=== PATIENT | female | born 1980 | race Caucasian/White ===

== ENCOUNTER → 2017-09-04 13:57 | Outpatient (CLI) | payer OTHER, SELFPAY ==
--- NOTE | 2017-09-04 14:04 | US_ITS ---
STUDY: RENAL ULTRASOUND - COMPLETE REASON FOR EXAM: Female, 37 years old. Flank pain, hematuria TECHNIQUE: Transverse and longitudinal imaging of the kidneys and bladder was obtained using real-time ultrasound. COMPARISON: CT abdomen and pelvis dated July 06, 2017 FINDINGS: RIGHT KIDNEY: The right kidney is normal in location. The right kidney measures 10.7 x 3.8 x 5.1 cm. The renal cortex is normal in appearance. The renal cortex measures 1.2 cm. There is no demonstrated renal mass. There is no dilatation of the collecting system. LEFT KIDNEY: The left kidney is normal in location. The left kidney measures 10.1 x 4.3 x 4.0 cm. The renal cortex is normal in appearance. The renal cortex measures 1.1 cm. There is no demonstrated renal mass. There is an extra-renal pelvis of the left kidney. There is no distention of the renal calyces. BLADDER: The bladder shows a normal wall thickness. There is no demonstrated mass in the bladder. The right ureteral jet was visualized. The left ureteral jet was visualized. US/Kidney and Bladder IMPRESSION: There is a prominent extrarenal pelvis on the left side, or there is mild left hydronephrosis. The kidneys are normal in size and echogenicity. No significant abnormalities are seen in the bladder. Electronically Signed: Malia Mohr MD at 20:46 EST Tel Direct: [phone], Service support ,
--- NOTE | 2017-09-04 14:04 | US_ITS ---
STUDY: ULTRASOUND OF THE FEMALE PELVIS REASON FOR EXAM: Female, 37 years old. Left pelvic pain LMP: September 03, 2017 TECHNIQUE: Transverse and longitudinal imaging of the pelvis was obtained transvaginally using real-time ultrasound. COMPARISON: CT abdomen and pelvis dated July 06, 2017 FINDINGS: The uterus is retroflexed and is in a midline position. The uterus measures 7.9 x 4.9 x 4.7 cm. Normal uterine cervix. The endometrium measures 4.5 mm in thickness, and is hyperechoic. There is no demonstrated endometrial mass. There is no demonstrated myometrial mass. I.U.D. - The patient does not have an I.U.D. The right ovary is visualized. The right ovary measures 2.9 x 2.1 x 2.1 cm. There are follicles in the right ovary without a dominant cyst. There is no visualized right adnexal mass or complex lesion. There is normal arterial and normal venous vascularity. The left ovary is visualized. The left ovary measures 2.8 x 1.4 x 1.3 cm. There is a dominant follicle in the left ovary measuring 1 cm in size. There is no visualized left adnexal mass or complex lesion. There is normal arterial and normal venous vascularity. There is no fluid in the cul-de-sac. The bladder was not adequately visualized on the pelvic ultrasound. US/Transvaginal Non- IMPRESSION: There are no significant abnormalities on the pelvic ultrasound. Electronically Signed: Malia Mohr MD at 21:24 EST Tel Direct: [phone], Service support ,
--- NOTE | 2017-09-04 14:04 | US_ITS ---
STUDY: ULTRASOUND OF THE FEMALE PELVIS REASON FOR EXAM: Female, 37 years old. Left pelvic pain LMP: September 03, 2017 TECHNIQUE: Transverse and longitudinal imaging of the pelvis was obtained transvaginally using real-time ultrasound. COMPARISON: CT abdomen and pelvis dated July 06, 2017 FINDINGS: The uterus is retroflexed and is in a midline position. The uterus measures 7.9 x 4.9 x 4.7 cm. Normal uterine cervix. The endometrium measures 4.5 mm in thickness, and is hyperechoic. There is no demonstrated endometrial mass. There is no demonstrated myometrial mass. I.U.D. - The patient does not have an I.U.D. The right ovary is visualized. The right ovary measures 2.9 x 2.1 x 2.1 cm. There are follicles in the right ovary without a dominant cyst. There is no visualized right adnexal mass or complex lesion. There is normal arterial and normal venous vascularity. The left ovary is visualized. The left ovary measures 2.8 x 1.4 x 1.3 cm. There is a dominant follicle in the left ovary measuring 1 cm in size. There is no visualized left adnexal mass or complex lesion. There is normal arterial and normal venous vascularity. There is no fluid in the cul-de-sac. The bladder was not adequately visualized on the pelvic ultrasound. US/Pelvic (Non ) IMPRESSION: There are no significant abnormalities on the pelvic ultrasound. Electronically Signed: Malia Mohr MD at 21:24 EST Tel Direct: [phone], Service support ,
== END ==
PROVIDERS: Family Provider Nurse Practitioner Family
DX: R31.9 Hematuria, unspecified (principal); R10.9 Unspecified abdominal pain
CPT/HCPCS: 76770; 76830; 76856; 93976

== ENCOUNTER → 2017-10-06 10:42 | Outpatient (CLI) | payer OTHER, SELFPAY ==
[2017-10-06 14:15] LABS: hCG Titer Quant., Serum 823 mIU/mL (<9 non-preg)
[2017-10-06 14:22] LABS: Thyroid Stim Hormone (TSH) 2.66 uIU/mL (0.358-3.74)
[2017-10-07 09:48] LABS: Progesterone Level 27.76 ng/mL (See Comment)
== END ==
PROVIDERS: Visit Provider Nurse Practitioner Women's Health
DX: Z34.90 Encounter for supervision of normal pregnancy, unspecified, unspecified trimester (principal); N92.6 Irregular menstruation, unspecified
CPT/HCPCS: 36415; 84144; 84443; 84702

== ENCOUNTER → 2017-10-07 15:00 | Outpatient (CLI) | payer OTHER, SELFPAY | PROVIDERS: Family Provider Nurse Practitioner Family; PCP Nurse Practitioner Family; Visit Provider Nurse Practitioner Women's Health | DX: N89.8 Other specified noninflammatory disorders of vagina (principal) | CPT/HCPCS: 87070; 87205 ==

== ENCOUNTER → 2017-10-08 10:44 | Outpatient (CLI) | payer OTHER, SELFPAY ==
[2017-10-08 11:46] LABS: hCG Titer Quant., Serum 1085 mIU/mL (<9 non-preg)
== END ==
PROVIDERS: Family Provider Nurse Practitioner Family; PCP Nurse Practitioner Family; Visit Provider Nurse Practitioner Women's Health
DX: Z34.90 Encounter for supervision of normal pregnancy, unspecified, unspecified trimester (principal)
CPT/HCPCS: 36415; 84702

== ENCOUNTER → 2017-10-10 11:12 | Outpatient (CLI) | payer OTHER, SELFPAY ==
[2017-10-10 12:17] LABS: hCG Titer Quant., Serum 1582 mIU/mL (<9 non-preg)
== END ==
PROVIDERS: Family Provider Nurse Practitioner Family; PCP Nurse Practitioner Family; Visit Provider Nurse Practitioner Women's Health
DX: Z34.90 Encounter for supervision of normal pregnancy, unspecified, unspecified trimester (principal)
CPT/HCPCS: 36415; 84702

== ENCOUNTER → 2017-10-12 13:52 | Outpatient (CLI) | payer OTHER, SELFPAY ==
--- NOTE | 2017-10-12 13:55 | US_ITS ---
STUDY: FIRST TRIMESTER OBSTETRICAL ULTRASOUND REASON FOR EXAM: Female, 37 years old. Pelvic pain. Early . LMP: 09/03/2017 TECHNIQUE: 09/04/2017 PRIOR ULTRASOUND: None. FINDINGS: There is visualization of a single gestational sac in a normal intrauterine position. The mean sac diameter (MSD) measures 4.4 mm, indicating an estimated gestational age (EGA) of 5 weeks, 0 days. The gestational sac shape is within normal limits. There is a visualized yolk sac. The yolk sac measures 2.4 mm. The placenta is non-visualized. There is no demonstrated embryo ( pole). The estimated gestation age (EGA) by LMP is 5 weeks, 4 days. The estimated date of delivery (ADILSON) by LMP is 06/10/2018. The estimated gestation age (EGA) by US is 5 weeks, 0 days. The estimated date of delivery (ADILSON) by US is 06/14/2018. The uterus measures 8.9 x 6.0 x 5.0 cm. There is no demonstrated uterine fibroid. The cervix is closed. The right ovary measures 3.1 x 2.4 x 2.4 cm. Probable right corpus luteum cyst. There is no visualized right adnexal mass or complex lesion. The left ovary measures 3.0 x 1.6 x 1.7 cm. There is no left ovarian cyst. There is no visualized left adnexal mass or complex lesion. There is minimal fluid in the cul de sac. US/Transvaginal w/Preg US IMPRESSION: Very early intrauterine gestation. Viability not established. Recommend short interval follow-up. Electronically Signed: Micha Warren MD at 16:00 EST , Service support ,
== END ==
PROVIDERS: Family Provider Nurse Practitioner Family; PCP Nurse Practitioner Family; Visit Provider Nurse Practitioner Women's Health
DX: R10.2 Pelvic and perineal pain (principal)
CPT/HCPCS: 76817

== ENCOUNTER → 2017-10-21 10:13 | Outpatient (CLI) | payer OTHER, SELFPAY ==
--- NOTE | 2017-10-21 10:14 | US_ITS ---
STUDY: FIRST TRIMESTER OBSTETRICAL ULTRASOUND REASON FOR EXAM: Female, 37 years old. Threatened . LMP: September 03, 2017. TECHNIQUE: Transabdominal and Transvaginal PRIOR ULTRASOUND: Comparison is made with prior examination dated October 12, 2017 FINDINGS: There is visualization of a single gestational sac in a normal intrauterine position. The mean sac diameter (MSD) measures 1.09 cm, indicating an estimated gestational age (EGA) of 5 weeks, 6 days. The gestational sac shape is within normal limits. There is a visualized yolk sac. The yolk sac measures 3.6 mm. The placenta is non-visualized. There is visualization of a live embryo. The crown-rump length (CRL) measures 5.4 mm, indicating an estimated gestational age (EGA) of 6 weeks, 3 days. There is demonstrated cardiac activity with a heart rate of 119 bpm. The estimated gestation age (EGA) by LMP is 6 weeks, 6 days. The estimated date of delivery (ADILSON) by LMP is June 10, 2018. The estimated gestation age (EGA) by US is 6 weeks, 1 days. The estimated date of delivery (ADILSON) by US is June 15, 2018. The uterus measures 10.7 cm x 7.8 cm x 6.8 cm. There is no demonstrated uterine fibroid. The cervix is closed. The right ovary measures 3.7 cm x 2.1 cm x 2.2 cm.. There is no right ovarian cyst. There is no visualized right adnexal mass or complex lesion. The left ovary measures 2.2 cm x 2.4 cm x 2.1 cm. There is no left ovarian cyst. There is no visualized left adnexal mass or complex lesion. There is minimal fluid in the cul de sac. US/Init OB < 14Wks US IMPRESSION: Single live gestation with mean gestational age of 6 weeks and 1 day. Electronically Signed: Giancarlo Block MD at 13:16 EDT Tel [phone], Service support ,
== END ==
PROVIDERS: Family Provider Nurse Practitioner Family; PCP Nurse Practitioner Family; Visit Provider Obstetrics & Gynecology
DX: O20.0 Threatened abortion (principal)
CPT/HCPCS: 76801

== ENCOUNTER → 2017-10-27 09:58 | Outpatient (CLI) | payer OTHER, SELFPAY ==
[2017-10-27 13:49] LABS: Absolute Lymphocyte Count 2.06 X10^3/ul (0.83-4.51); Absolute Neutrophil Count 3.5 X10^3/uL (2.0-7.7); Basophil# 0.01 X10^3/uL; Basophil% 0.2 % (0-1); Eosinophil# 0.04 X10^3/uL; Eosinophils% 0.7 % (0-5); Hematocrit 36.9 % (37-47); Hemoglobin 12.3 g/dl (12.0-15.0); Lymphocyte # 2.06 X10^3/ul (4.0); Lymphocyte % 34.4 % (19-41); Mean Corp Hgb Conc 33.3 g/gl (32-36); Mean Corpuscular Hgb 30.8 pg (27.0-32.0); Mean Corpuscular Volume 92.3 fL (81-99); Mean Platelet Vol. 11.4 fl (6.2-12.0); Monocyte# 0.42 X10^3/uL; Neutrophil # 3.45 X10^3/uL (2.7-7.7); Neutrophil % 57.7 % (47-70); Platelet Count 240 K/mm3 (150-450); RBC Distribution Width CV 12.4 % (11.6-14.6); RBC Distribution Width SD 40.9 fl (35.1-43.9)
[2017-10-27 13:52] LABS: POSITIVE COUNT NO; POSITIVE DIFFERENTIAL NO; POSITIVE MORPHOLOGY NO
[2017-10-28 09:49] LABS: HIV - WCH Non-Reactive (Nonreactive); Rubella IgG 51.8 IU/mL
[2017-10-28 11:19] LABS: HEPATITIS B SURFACE AG Negative (Negative)
[2017-10-30 03:10] LABS: Rapid Plasmin Reagin (RPR) NONREACTIVE (NONREACTIVE)
== END ==
PROVIDERS: Family Provider Nurse Practitioner Family; PCP Nurse Practitioner Family; Visit Provider Obstetrics & Gynecology
DX: O09.511 Supervision of elderly primigravida, first trimester (principal); Z3A.00 Weeks of gestation of pregnancy not specified
CPT/HCPCS: 85025; 86592; 86703; 86762; 86850; 86900; 87340

== ENCOUNTER → 2017-10-27 22:04 | Outpatient (CLI) | payer OTHER, SELFPAY ==
[2017-10-28 01:27] LABS: Chlamydia Trachomatis by PCR Negative (Negative); Neisserai gonorrhoeae by PCR Negative (Negative); Probe Check PASS; Sample Adequacy Control PASS; Specimen Processing Control PASS
[2017-11-04 11:46] LABS: HPV APTIMA, High Risk Negative (Negative)
== END ==
PROVIDERS: Visit Provider Obstetrics & Gynecology
DX: O09.511 Supervision of elderly primigravida, first trimester (principal); Z12.4 Encounter for screening for malignant neoplasm of cervix; Z3A.00 Weeks of gestation of pregnancy not specified
CPT/HCPCS: 87086; 87088; 87491; 87591; 88175; G0145

== ENCOUNTER → 2017-11-24 09:45 | Outpatient (CLI) | payer OTHER, SELFPAY | PROVIDERS: Nurse Practitioner Women's Health; Visit Provider Obstetrics & Gynecology | DX: O09.529 Supervision of elderly multigravida, unspecified trimester (principal); Z3A.00 Weeks of gestation of pregnancy not specified ==

== ENCOUNTER → 2017-11-24 18:45 | Outpatient (CLI) | payer OTHER, SELFPAY ==
[2017-11-28 13:20] LABS: HPV APTIMA, High Risk Negative (Negative)
== END ==
PROVIDERS: Visit Provider Nurse Practitioner Women's Health
DX: Z12.4 Encounter for screening for malignant neoplasm of cervix (principal)
CPT/HCPCS: 88175; G0145

== ENCOUNTER → 2018-01-22 12:21 | Outpatient (CLI) | payer OTHER, SELFPAY ==
--- NOTE | 2018-01-22 12:23 | US_ITS ---
STUDY: SECOND AND THIRD TRIMESTER OBSTETRICAL ULTRASOUND REASON FOR EXAM: Female, 37 years old. Anatomy scan. LMP: 09/03/2017 TECHNIQUE: Transabdominal PRIOR ULTRASOUND: 10/21/2017. FINDINGS: There is a single intrauterine fetus. The fetus is in a breech presentation. There is demonstrated cardiac activity with a heart rate of 163 bpm. There is a normal amniotic fluid volume. The largest amniotic fluid pocket measures 6.8 cm. The placenta is anterior in location and is not low lying. There are Grade 0 placental changes. The cervix measures 4.0 cm in length. The adnexal regions are not visualized. BIOMETRY: BPD: 4.5: 19 weeks, 5 days HC: 17.6: 20 weeks, 1 days AC: 14.9: 20 weeks, 1 days FL: 3.3: 20 weeks, 3 days CI: FL/BPD: FL/HC: FL/AC: HC/AC: age by current US: 20 weeks, 1 days. ADILSON by current US: 06/10/2018. Estimated weight: 341 grams, +/- 50 grams, 51 %. age by prior US: 19 weeks, 3 days. ADILSON by prior US: 06/15/2018. Age by LMP: 20 weeks, 1 days. ADILSON by LMP: 06/10/2018. ANATOMY: Gender: Female Cranium: Normal lateral ventricles. Normal choroid plexus. Normal cerebellum. Normal cisterna magna. Normal face, nose and lips. Chest: Normal 4-chamber heart. Abdomen/Pelvis: Normal diaphragm. Normal stomach. Normal abdominal wall. Normal cord insertion. Normal 3 vessel cord. Normal kidneys. Normal bladder. Spine: Normal cervical spine. Normal thoracic spine. Normal lumbar spine. Normal sacrum. Extremities: Normal bilateral upper extremities. Normal bilateral lower extremities. US/OB Anatomy Scan IMPRESSION: Single live fetus in a breech presentation. No demonstrated anatomic abnormality. Placenta is grade 0 and is not low-lying. Cervix is closed. age by current US: 20 weeks, 1 days. ADILSON by current US: 06/10/2018. Estimated weight: 341 grams, +/- 50 grams, 51 %. Electronically Signed: Micha Warren MD at 15:23 EDT , Service support ,
== END ==
PROVIDERS: Visit Provider Obstetrics & Gynecology
DX: O09.511 Supervision of elderly primigravida, first trimester (principal); Z3A.20 20 weeks gestation of pregnancy
CPT/HCPCS: 76805

== ENCOUNTER → 2018-03-19 10:47 | Outpatient (CLI) | payer OTHER, SELFPAY ==
[2018-03-19 13:16] LABS: Absolute Lymphocyte Count 1.77 X10^3/ul (0.83-4.51); Absolute Neutrophil Count 4.6 X10^3/uL (2.0-7.7); Basophil# 0.01 X10^3/uL; Basophil% 0.1 % (0-1); Eosinophil# 0.05 X10^3/uL; Eosinophils% 0.7 % (0-5); Hematocrit 35.2 % (37-47); Hemoglobin 11.7 g/dl (12.0-15.0); Lymphocyte # 1.77 X10^3/ul (4.0); Lymphocyte % 25.2 % (19-41); Mean Corp Hgb Conc 33.2 g/gl (32-36); Mean Corpuscular Hgb 31.5 pg (27.0-32.0); Mean Corpuscular Volume 94.9 fL (81-99); Mean Platelet Vol. 11.1 fl (6.2-12.0); Monocyte# 0.52 X10^3/uL; Monocyte% 7.4 % (0-10); Neutrophil # 4.64 X10^3/uL (2.7-7.7); Neutrophil % 66.2 % (47-70); Platelet Count 218 K/mm3 (150-450); RBC Distribution Width CV 13.1 % (11.6-14.6); RBC Distribution Width SD 43.9 fl (35.1-43.9); Red Blood Count 3.71 M/mm3 (4.2-5.4)
[2018-03-19 13:19] LABS: POSITIVE COUNT NO; POSITIVE DIFFERENTIAL NO; POSITIVE MORPHOLOGY NO
[2018-03-19 13:27] LABS: Glucose Challenge Gest 1H 50g 61 mg/dL (70-140)
== END ==
PROVIDERS: Visit Provider Obstetrics & Gynecology
DX: O09.529 Supervision of elderly multigravida, unspecified trimester (principal); Z3A.00 Weeks of gestation of pregnancy not specified
CPT/HCPCS: 36415; 82950; 85025

== ENCOUNTER 2018-05-14 12:20 | Inpatient (IN) | payer OTHER, SELFPAY ==
[2018-05-14] MEDS: Lactated Ringers 1,000 ML 50 ML IV (13:10)
[2018-05-14 13:27] LABS: Hematocrit 36.3 % (37-47); Hemoglobin 12.2 g/dl (12.0-15.0); Mean Corp Hgb Conc 33.6 g/gl (32-36); Mean Corpuscular Hgb 31.3 pg (27.0-32.0); Mean Corpuscular Volume 93.1 fL (81-99); Mean Platelet Vol. 10.2 fl (6.2-12.0); Platelet Count 205 K/mm3 (150-450); RBC Distribution Width CV 13.3 % (11.6-14.6); White Blood Count 8.2 K/mm3 (4.4-11.0)
[2018-05-14 13:28] LABS: Scan Indicated on CBC? Y/N NO
[2018-05-14] MEDS: miSOPROStol 25 MCG TABLET VAGINAL (13:30)
[2018-05-14 13:36] VITALS: BMI 24.2
[2018-05-14] MEDS: Betamethasone/Betamethasone 30 MG/5 ML Vial 12 MG IM (14:10)
[2018-05-14] MEDS: 0.9% Saline Lock 10 ML Syringe IV (14:20)
[2018-05-14] MEDS: Terbutaline 1 MG/ML Vial 0.25 MG SC (17:33)
--- NOTE | 2018-05-14 20:21 | PCM.HP.OB ---
- Problem List (1) Oligohydramnios in third trimester Status: Acute (2) Uterine size-date discrepancy in third trimester Status: Acute Comment: us ordered (3) Status: Acute Qualifiers: Comment: NIPT screening negative. carrier and NTD screening declined. anatomy scan normal (4) High-risk , multigravida of advanced maternal age, antepartum Status: Acute Comment: PRR ADILSON 06/10/18 Girl. Herlinda Matias Jorge A (5) Pap smear abnormality of cervix with ASCUS favoring benign Status: Acute Comment: repeat 08/2018 History Date of Admission: 05/14/18 Final ADILSON: 06/10/18 Gestational age: 36 Weeks and 1 Days History of this : This is a 38 year-old, at 36 weeks gestational age presents for IOL secondary to oligohydramnios. she has had a complicated by AMA but otherwise no issues. denies vb lof admits good fm Surgical History: Surgical History (Last Reviewed 05/14/18 @ 10:16 by Elsa Fay) H/O LEEP Z98.890 2005, negative since gallstone removal Allergies No Known Allergies Allergy (Verified 05/14/18 10:16) Home Medications: Home Medications vitamin,calcium,nfffsbxr-nprb-easqw acid tablet 1 tab PO QDAY 10/13/17 ondansetron HCl 4 mg tablet 4 mg PO Q6H PRN #60 tab 11/24/17 Smoking Status: Never smoker Alcohol: None Number of Fetus(es): 1 Heart Tracin mod sammy reactive no decels cat I tracing TOCO Analysis: no regular History Past Pregnancies: Past Pregnancies Delivery Date Name GA/Weeks Outcome Route Weight Infant Gender Labor Length Anesthesia Delivery Location Provider FOB Labs: Mom's Labs & Results 05/14/18 05/14/18 13:10 13:10 WBC 8.2 RBC 3.90 L Hgb 12.2 Hct 36.3 L MCV 93.1 MCH 31.3 MCHC 33.6 RDW 13.3 RDW Differential 45.0 H Plt Count 205 MPV 10.2 Blood Type O POSITIVE Antibody Screen NEGATIVE Course Did the patient receive Yes care? Labs Blood Type: O RH: POSITIVE RPR/VDRL/Syphilis Nonreactive Rubella status Immune HbSAg Negative Date Done: 10/27/17 Chlamydia Negative Gonorrhea Negative HIV/AIDS Non-Reactive Group B Strep: Not Done Current Obstetrical History Gestational Diabetes No Incompetent Cervix No Infertility No IUGR No Macrosomia No Hypertension/Pre-eclampsia No Placenta Previa/Abruption No PTL/PROM No Uterine anomaly No Oligohydramnios Yes Polyhydramnios No Multiple gestation No Past Medical History Asthma No Diabetes No Hypertension No Heart disease No Mitral valve prolapse No Neurologic/Seizure disorder/ No Migraines Kidney disease No Liver disease No Varicosities No Clotting disorders/Hx of DVT No Thyroid Dysfunction No Other medical diseases No Psychiatric disorders No Major trauma No Abnormal PAP smear Yes: not recently Sleep apnea No Mammogram in the last 2 years No Social History Marital Status: Alleged father Jorge A Smart Hx Smoking No Smoking Status Never smoker Expected Delivery Method: Spontaneous Vaginal Review of Systems Constitutional: Denies: Fever, Malaise Eyes: Denies: Blurred vision, Vision Change HEENT: Denies: Head Aches, Visual Changes Cardiovascular: Denies: Chest Pain, Palpitations Respiratory: Denies: Cough, Shortness of Breath, Wheezing Gastrointestinal: Denies: Abdominal Pain, Diarrhea, Nausea, Vomiting Genitourinary: Denies: Dysuria, Hematuria Musculoskeletal: Denies: Joint Pain, Muscle pain Skin: Denies: Lesions, Rash Neurological: Denies: Blurred vision, Focal weakness, Headaches Psychiatric: Denies: Anxiety, Depression Endocrine: Denies: Heat/ Cold Intolerance Hematologic/ Lymphatic: Denies: Easy Bruising, Easy Bleeding Physical Exam General: Alert, Cooperative, No apparent distress HEENT: Atraumatic, Normocephalic. Negative for: Thyromegaly, Lymphadenopathy Cardiovascular: Regular rate Lungs: Normal air movement Abdomen: Soft, Non Tender, Gravid Neurological: Deep Tendon Reflexes 2+/4 and Symmetrical, Neuro grossly intact. 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 Negative for: Vulvar lesions Estimated gestational size: Appropriate for gestational size Presentation: Cephalic Assessment/Plan All Active Problems (Last Reviewed 05/14/18 @ 10:16 by Elsa Fay) Oligohydramnios in third trimester (Acute) Uterine size-date discrepancy in third trimester (Acute) (Acute) High-risk , multigravida of advanced maternal age, antepartum (Acute) Pap smear abnormality of cervix with ASCUS favoring benign (Acute) Threatened (Resolved) This is a 38 year-old, at 36 weeks gestational age presents IOL oligo Patient presents IOL oligo- plan cytotec then pitocin IOL Pain management: plans epidural GBS positive plan IV PCN Management of any complications: oligo I have reviewed the PFSH and made any clinically relevant updates.
[2018-05-14] MEDS: Oxytocin 30 units/NS 500 ml 30 UNITS/500 ML IV.SOLN 167 UNITS IV (20:30)
[2018-05-14] MEDS: Amnioinfusion- 0.9% NS 1,000 ML IV.SOLN. INTRA-UTER (20:40)
[2018-05-14] MEDS: fentaNYL-bupivacaine (epidural) 100 ML BAG EPIDURAL ×2 (21:04→22:48)
[2018-05-14] MEDS: Lactated Ringers 1,000 ML 150 ML IV (22:49)
[2018-05-15] MEDS: Oxytocin 30 units/NS 500 ml 30 UNITS/500 ML IV.SOLN 334 UNITS IV (02:54)
--- NOTE | 2018-05-15 03:22 | PCM.OB.VAG ---
- Problem List (1) Oligohydramnios in third trimester Status: Acute (2) Uterine size-date discrepancy in third trimester Status: Acute Comment: us ordered (3) Status: Acute Qualifiers: Comment: NIPT screening negative. carrier and NTD screening declined. anatomy scan normal (4) High-risk , multigravida of advanced maternal age, antepartum Status: Acute Comment: PRR ADILSON 06/10/18 Girl. Herlinda Matias Jorge A (5) Pap smear abnormality of cervix with ASCUS favoring benign Status: Acute Comment: repeat 08/2018 Vaginal Delivery Maternal Presentation: Medically Indicated Induction iol oligo Medical Reason for Induction: Compromise: list: - oligo Amniotic Membrane Rupture Type: Artificial Amniotic Fluid Description: Clear Final ADILSON: 06/10/18 Gestational age: 36 Weeks and 2 Days Date of Procedure: 05/15/18 Pre-Operative Diagnosis: iol oligo Post-Operative Diagnosis: same Surgery/ Procedure Performed: Spontaneous Vaginal Delivery Type of Anesthesia: Epidural Description of Procedure: Patient began pushing and delivered the head in the ALTA presentation. The head was delivered atraumatically. The anterior and posterior shoulders delivered without complication followed by the rest of the and the infant was placed on the maternal abdomen. Delayed cord clamping was employed for approximately 60 seconds. Cord was clamped and cut and gentle traction was applied to the cord and the placenta delivered spontaneously immediately following it was noted to be intact with three-vessel cord. The perineum and vagina were inspected and noted to have a small first-degree perineal laceration repaired with a single stitch of 3-0 Vicryl Rapide. EBL was 100 cc. Patient and tolerated delivery well. Presentation: ALTA Placental Delivery Description: Spontaneous Placenta Disposition: [facility] Cord Vessel Description: 3 Vessels Cord Entanglement: None Estimated Blood Loss: 100 Infant A gender: Female (1 minute): 8 (5 minute): 9 Episiotomy Description: None Laceration: Perineal Extension/lac, 1st degree Medications given after delivery: IV Pitocin Complications: None
[2018-05-15] MEDS: Oxytocin 30 units/NS 500 ml 30 UNITS/500 ML IV.SOLN 167 UNITS IV (03:24)
--- NOTE | 2018-05-15 03:27 | DCINST_ITS ---
Discharge Diet: No Restrictions Discharge Activity: Return to Normal Activity, May not drive while taking narcotic pain medications., May Shower May resume sexual activity in: 4-6 weeks Call your doctor if your incision/area has: Continuous Slow Oozing, Sudden Increased Bleeding, Increased Pain/ Swelling, Increased Redness, Foul Smelling Discharge Additional Instructions: If you experience any of the following, contact your healthcare provider. * Bleeding that soaks a pad every hour for 2 hours * Fever 100.4 or higher * Unrelieved incision or abdominal pain * Swelling, redness, discharge or bleeding from your incision or episiotomy site * Your incision begins to separate * Problems urinating (including inability to urinate or burning while urinating). * Visual changes * Severe headache * Flu-like symptoms * Pain or redness in one of both of your breasts * Pain, warmth, tenderness or swelling in your legs, especially the calf area * Frequent nausea and vomiting * Symptoms of depression or anxiety If you experience any of the following, call 911 or go to the nearest Emergency Room. * Chest pain * Problems breathing * Seizure activity * Partial or complete paralysis of a body part, slurred speech, weakness or drooping of the face, or a sudden inability to walk or hold your balance Allergies/Adverse Reactions: Allergies No Known Allergies Allergy (Verified 05/14/18 10:16) Medications to take at Discharge vitamin,calcium,hvcgfood-fwem-kkazj acid tablet 1 tab PO QDAY 10/13/17 ondansetron HCl 4 mg tablet 4 mg PO Q6H PRN #60 tab 11/24/17 Please Follow Up With: Breana Welch MD - [phone] When: Call to make an appointment with your doctor in 6 weeks. If you had elevated Blood pressure or 4th degree laceration you will need to be seen in 2 weeks. Primary Care Physician: Mariam Tolentino [Primary Care Provider] - Test Results: Test results from this visit will be discussed in further detail at your follow- up appointment, if applicable.
--- NOTE | 2018-05-15 03:27 | PCM.DCVAG ---
Discharge Diet: No Restrictions Discharge Activity: Return to Normal Activity, May not drive while taking narcotic pain medications., May Shower May resume sexual activity in: 4-6 weeks Call your doctor if your incision/area has: Continuous Slow Oozing, Sudden Increased Bleeding, Increased Pain/ Swelling, Increased Redness, Foul Smelling Discharge Additional Instructions: If you experience any of the following, contact your healthcare provider. Bleeding that soaks a pad every hour for 2 hours Fever 100.4 or higher Unrelieved incision or abdominal pain Swelling, redness, discharge or bleeding from your incision or episiotomy site Your incision begins to separate Problems urinating (including inability to urinate or burning while urinating). Visual changes Severe headache Flu-like symptoms Pain or redness in one of both of your breasts Pain, warmth, tenderness or swelling in your legs, especially the calf area Frequent nausea and vomiting Symptoms of depression or anxiety If you experience any of the following, call 911 or go to the nearest Emergency Room. Chest pain Problems breathing Seizure activity Partial or complete paralysis of a body part, slurred speech, weakness or drooping of the face, or a sudden inability to walk or hold your balance Allergies/Adverse Reactions: Allergies No Known Allergies Allergy (Verified 05/14/18 10:16) Medications to take at Discharge vitamin,calcium,wlnogfzx-debu-ovdij acid tablet 1 tab PO QDAY 10/13/17 ondansetron HCl 4 mg tablet 4 mg PO Q6H PRN #60 tab 11/24/17 Please Follow Up With: Breana Welch MD - [phone] When: Call to make an appointment with your doctor in 6 weeks. If you had elevated Blood pressure or 4th degree laceration you will need to be seen in 2 weeks. Primary Care Physician: Mariam Tolentino [Primary Care Provider] - Test Results: Test results from this visit will be discussed in further detail at your follow-up appointment, if applicable.
[2018-05-15] MEDS: Acetaminophen 500 MG Tablet 1000 MG PO ×2 (06:53→18:02)
--- NOTE | 2018-05-15 09:40 | NURSING ---
0915 Up to the bathroom with assistance. Voids large amount. Suze care done per patient after instructions, daniela well. Requests to visit baby in [place] [facility]. Ambulates to [place] [facility], daniela well. States she feels good.
[2018-05-15 10:00] VITALS: BP 92/54; PULSE 55; RESP 16; TEMP 36.6
[2018-05-15] MEDS: Prenatal Vits Tablet 1 TABLET PO (11:33)
[2018-05-15] MEDS: Naproxen 250 MG Tablet PO ×2 (11:33→19:53)
[2018-05-15 14:00] VITALS: BP 106/56; PULSE 52; RESP 16; TEMP 36.6
[2018-05-15] MEDS: Dibucaine 30 GM Tube 1 APPLIC TOPICAL (18:04)
[2018-05-15 20:00] VITALS: BP 112/55; PULSE 61; RESP 16; TEMP 36.7
[2018-05-16 02:00] VITALS: BP 110/60; PULSE 66; RESP 16; TEMP 36.4
[2018-05-16] MEDS: Naproxen 250 MG Tablet PO (03:51)
[2018-05-16 08:00] VITALS: BP 112/71; PULSE 57; RESP 18; TEMP 36.3
[2018-05-16] MEDS: Senna/Docusate Sodium 1 Tablet PO (09:11)
[2018-05-16] MEDS: Prenatal Vits Tablet 1 TABLET PO (09:11)
--- NOTE | 2018-05-16 15:58 | PCM.PN.OB ---
Patient Problems: Active and Suspected Problems (Last Reviewed 05/14/18 @ 10:16 by Elsa Fay) Oligohydramnios in third trimester (Acute) Subjective: doing well no complaints - Physical Exam General: Alert, Oriented x3 Vital Signs Temp Pulse Resp BP 97.6 F L 66 16 110/60 05/16/18 02:00 05/16/18 02:00 05/16/18 02:00 05/16/18 02:00 Oxygen Delivery Method Room Air Weight: 150 lb 2.157 oz Body Mass Index (BMI) 24.2 Intake and Output for Last 24 Hours 05/14/18 05/15/18 05/16/18 23:59 23:59 23:59 Intake Total 200 / 200 5309 / 5309 Output Total 950 / 950 1000 / 1000 Balance -750 / -750 4309 / 4309 Medical Necessity - Tobacco Use Smoking Status: Never smoker Assessment/Plan All Active Problems (Last Reviewed 05/14/18 @ 10:16 by Elsa Fay) Oligohydramnios in third trimester (Acute) Uterine size-date discrepancy in third trimester (Acute) (Acute) High-risk , multigravida of advanced maternal age, antepartum (Acute) Pap smear abnormality of cervix with ASCUS favoring benign (Acute) Threatened (Resolved) s/p routine care dc to [facility] status tomorrow
[2018-05-16 16:30] VITALS: BP 99/60; PULSE 65; RESP 16; TEMP 37.1
[2018-05-16 19:45] VITALS: BP 93/52; PULSE 66; RESP 15; TEMP 37; O2SAT 97
[2018-05-17 02:06] VITALS: BP 98/52; PULSE 52; RESP 15; TEMP 36.8; O2SAT 97
[2018-05-17 09:11] VITALS: BP 103/60; PULSE 63; RESP 16; TEMP 37.2
--- NOTE | 2018-05-17 10:54 | PCM.PN.OB ---
Patient Problems: Active and Suspected Problems (Last Reviewed 05/14/18 @ 10:16 by Elsa Fay) Oligohydramnios in third trimester (Acute) Subjective: No CP, SOB. Doing well. - Physical Exam General: Alert, Oriented x3 Abdomen: Soft, Non Tender, - - FF below U Vital Signs Temp Pulse Resp BP Pulse Ox 99.0 F 63 16 103/60 97 05/17/18 09:11 05/17/18 09:11 05/17/18 09:11 05/17/18 09:11 05/17/18 02:06 Oxygen Delivery Method Room Air Weight: 150 lb 2.157 oz Body Mass Index (BMI) 24.2 Intake and Output for Last 24 Hours 05/15/18 05/16/18 05/17/18 23:59 23:59 23:59 Intake Total 5309 / 5309 Output Total 1000 / 1000 Balance 4309 / 4309 Medical Necessity - Tobacco Use Smoking Status: Never smoker Assessment/Plan All Active Problems (Last Reviewed 05/14/18 @ 10:16 by Elsa Fay) Oligohydramnios in third trimester (Acute) Uterine size-date discrepancy in third trimester (Acute) (Acute) High-risk , multigravida of advanced maternal age, antepartum (Acute) Pap smear abnormality of cervix with ASCUS favoring benign (Acute) Threatened (Resolved) PPD #2: Routine care. Pain controlled. Baby special care nursery and plans hotel status today.
[2018-05-17] MEDS: Prenatal Vits Tablet 1 TABLET PO (12:05)
[2018-05-17 15:00] VITALS: BP 104/69; PULSE 50; RESP 16; TEMP 36.5
[2018-05-17 18:45] VITALS: BP 104/69; PULSE 50; RESP 16; TEMP 36.5
--- NOTE | 2018-05-17 19:20 | NURSING ---
to courtesy room
== END 2018-05-17 18:45 | disposition home or self-care (01) | DRG 806 ==
PROVIDERS: Admitting Provider Obstetrics & Gynecology; Referring Provider Obstetrics & Gynecology; Visit Provider Obstetrics & Gynecology
DX: O60.14X0 Preterm labor third trimester with preterm delivery third trimester, not applicable or unspecified (principal); O41.03X0 Oligohydramnios, third trimester, not applicable or unspecified; Z37.0 Single live birth; O98.82 Other maternal infectious and parasitic diseases complicating childbirth; O70.0 First degree perineal laceration during delivery; B95.1 Streptococcus, group B, as the cause of diseases classified elsewhere; O26.843 Uterine size-date discrepancy, third trimester; Z3A.36 36 weeks gestation of pregnancy; Z22.330 Carrier of Group B streptococcus
CPT/HCPCS: 59025; 59050; 85027; 86850; 86900; 99218; J7030; J7050; J7120; 90686; A4216; G0378; J0702

== ENCOUNTER → 2018-05-14 17:14 | Outpatient (CLI) | payer OTHER, SELFPAY ==
[2018-05-14 19:30] LABS: Group B Strep DNA By PCR Negative (Negative); Internal Control PASS; Probe Check PASS; Specimen Processing Control PASS
== END ==
PROVIDERS: Referring Provider Obstetrics & Gynecology; Visit Provider Obstetrics & Gynecology
DX: Z34.90 Encounter for supervision of normal pregnancy, unspecified, unspecified trimester (principal)
CPT/HCPCS: 87081; 87653